=== PATIENT | female | born 1985 | race Caucasian/White ===

== ENCOUNTER → 2023-04-14 15:58 | Outpatient (REF) | payer BC, SELFPAY | LOC: PNTC 15:58 | PROVIDERS: ATTENDING PHYSICIAN Obstetrics & Gynecology | DX: O24.419 Gestational diabetes mellitus in pregnancy, unspecified control (principal) | CPT/HCPCS: 76815 ==

== ENCOUNTER → 2023-04-16 15:27 | Outpatient (REF) | payer BC, SELFPAY ==
--- NOTE | 2023-04-16 15:51 | PN.DE ---
Diabetes Education
- -
Met with Tasneem today for insulin instructions. Her fasting glucose levels have been 92-103 mg/dl, and 88-141mg/dl 2 hrs after meals. Pt has been recommended to start Insulin NPH 6 units in am and @ HS per her Perinatologist Dr. Ramirez. Discussed
action of long acting insulins as well as symptoms and treatment of hypoglycemia. She is aware to inject insulin in outer thigh, rotating sites and aware to store insulin pens that are not in use in the refrigerator. Instructions with good return
demonstration using the insulin pen were noted. Discussed importance of checking fasting blood sugar to know the effect of the basal insulin on her blood sugars overnight. She has been consistent with monitoring 2 hrs after each meal. Stressed the
importance of ongoing monitoring fasting/before breakfast and 2 hrs after each meal to know the effect of food on her blood sugars.
Pt verbalized understanding.
== END ==
LOC: DES 15:27
PROVIDERS: ATTENDING PHYSICIAN Otolaryngology
DX: O24.419 Gestational diabetes mellitus in pregnancy, unspecified control (principal)
CPT/HCPCS: 99078

== ENCOUNTER → 2023-05-14 16:41 | Outpatient (REF) | payer BC, SELFPAY | LOC: PNTC 16:41 | PROVIDERS: ATTENDING PHYSICIAN Obstetrics & Gynecology | DX: O44.42 Low lying placenta NOS or without hemorrhage, second trimester (principal); O24.424 Gestational diabetes mellitus in childbirth, insulin controlled | CPT/HCPCS: 76816; 76817 ==

== ENCOUNTER → 2023-05-20 06:27 | Outpatient (REF) | payer BC, SELFPAY ==
[2023-05-20 07:24] LABS: ALT (SGPT) 14 U/L (0-35); AST (SGOT) 23 U/L (14-36); Albumin 3.3 g/dl (3.5-5.0); Alkaline Phosphatase 87 U/L (38-126); Blood Urea Nitrogen 7 mg/dl (7-17); Calcium 8.4 mg/dl (8.4-10.2); Carbon Dioxide 20 mmol/L (22-30); Chloride 109 mmol/L (98-107); Glucose 87 mg/dl (70-99); Potassium 3.5 mmol/L (3.5-5.1); Sodium 134 mmol/L (135-145); Total Bilirubin 0.3 mg/dl (0.2-1.3); Total Protein 6.1 g/dl (6.3-8.2); eGFR > 60.00
== END ==
LOC: REG 06:27
PROVIDERS: ATTENDING PHYSICIAN Obstetrics & Gynecology; FAMILY PHYSICIAN Family Medicine
DX: Z34.90 Encounter for supervision of normal pregnancy, unspecified, unspecified trimester (principal)
CPT/HCPCS: 36415; 80053

== ENCOUNTER → 2023-06-11 07:44 | Outpatient (REF) | payer BC, SELFPAY | LOC: PNTC 07:44 | PROVIDERS: ATTENDING PHYSICIAN Obstetrics & Gynecology | DX: O24.419 Gestational diabetes mellitus in pregnancy, unspecified control (principal) | CPT/HCPCS: 76816 ==

== ENCOUNTER → 2023-06-29 15:20 | Outpatient (REF) | payer BC, SELFPAY | LOC: PNTC 15:20 | PROVIDERS: ATTENDING PHYSICIAN Obstetrics & Gynecology | DX: O24.419 Gestational diabetes mellitus in pregnancy, unspecified control (principal); O98.519 Other viral diseases complicating pregnancy, unspecified trimester; U07.1 COVID-19 | CPT/HCPCS: 59025; 76815 ==

== ENCOUNTER → 2023-07-06 16:16 | Outpatient (REF) | payer BC, SELFPAY | LOC: PNTC 16:16 | PROVIDERS: ATTENDING PHYSICIAN Obstetrics & Gynecology | DX: O24.419 Gestational diabetes mellitus in pregnancy, unspecified control (principal); O98.519 Other viral diseases complicating pregnancy, unspecified trimester | CPT/HCPCS: 59025; 76815 ==

== ENCOUNTER → 2023-07-13 15:21 | Outpatient (REF) | payer BC, SELFPAY | LOC: PNTC 15:21 | PROVIDERS: ATTENDING PHYSICIAN Obstetrics & Gynecology | DX: O24.419 Gestational diabetes mellitus in pregnancy, unspecified control (principal) | CPT/HCPCS: 59025; 76816 ==

== ENCOUNTER → 2023-07-20 14:43 | Outpatient (REF) | payer BC, SELFPAY | LOC: PNTC 14:43 | PROVIDERS: ATTENDING PHYSICIAN Obstetrics & Gynecology | DX: O24.414 Gestational diabetes mellitus in pregnancy, insulin controlled (principal); O09.529 Supervision of elderly multigravida, unspecified trimester | CPT/HCPCS: 76815 ==

== ENCOUNTER → 2023-07-27 13:51 | Outpatient (REF) | payer BC, SELFPAY | LOC: PNTC 13:51 | PROVIDERS: ATTENDING PHYSICIAN Obstetrics & Gynecology | DX: O24.419 Gestational diabetes mellitus in pregnancy, unspecified control (principal); O09.529 Supervision of elderly multigravida, unspecified trimester; O99.210 Obesity complicating pregnancy, unspecified trimester | CPT/HCPCS: 59025; 76815 ==

== ENCOUNTER 2023-07-28 15:49 | Observation (INO) | payer BC, SELFPAY ==
[2023-07-28 15:56] VITALS: BP 131/82; BMI 37.3
== END 2023-07-28 18:25 | disposition home or self-care (01) ==
LOC: LDRP 15:49
PROVIDERS: ADMITTING PHYSICIAN Obstetrics & Gynecology
DX: O36.8130 Decreased fetal movements, third trimester, not applicable or unspecified (principal); Z3A.36 36 weeks gestation of pregnancy; O24.414 Gestational diabetes mellitus in pregnancy, insulin controlled; O99.213 Obesity complicating pregnancy, third trimester; O09.523 Supervision of elderly multigravida, third trimester; O76 Abnormality in fetal heart rate and rhythm complicating labor and delivery
CPT/HCPCS: 76818; G0378

== ENCOUNTER → 2023-08-03 15:46 | Outpatient (REF) | payer BC, SELFPAY | LOC: PNTC 15:46 | PROVIDERS: ATTENDING PHYSICIAN Obstetrics & Gynecology | DX: O24.419 Gestational diabetes mellitus in pregnancy, unspecified control (principal); O99.210 Obesity complicating pregnancy, unspecified trimester; O09.529 Supervision of elderly multigravida, unspecified trimester | CPT/HCPCS: 59025; 76815 ==

== ENCOUNTER 2023-08-06 17:10 | Inpatient (IN) | payer BC, SELFPAY ==
[2023-08-06 17:22] VITALS: BP 110/72; BMI 37.7
[2023-08-06 17:43] LABS: % Basophils 0.2 % (0-2); % Eosinophils 0.4 % (0-6); % Lymphocytes 27.5 % (20.5-51.1); % Neutrophils 64.9 % (42.2-75.2); Absolute Immature Granulocytes 0.1 10^3/uL (0-0.05); Absolute Lymphocytes 2.7 10^3/uL (1.2-3.4); Absolute Monocytes 0.6 10^3/uL (0.1-0.6); Absolute Neutrophils 6.3 10^3/uL (1.4-6.5); Hematocrit 34.1 % (37.0-47.0); Hemoglobin 12.2 g/dL (12.0-16.0); Mean Corp Hgb Conc. 35.8 g/dL (33.0-37.0); Mean Corpuscular Hgb 30.1 pg (27.0-31.0); Mean Corpuscular Volume 84.2 fL (81.0-99.0); Mean Platelet Volume 10.9 fL (7.4-10.4); Nucleated Red Blood Cells % 0 %; Platelet Count 160 10^3/uL (130-400); Red Blood Cell Count 4.05 10^6/uL (4.20-5.40); Red Cell Dist. Width 14.4 % (11.5-14.5); White Blood Cell Count 9.8 10^3/uL (4.8-10.8)
[2023-08-06 17:44] LABS: Urine Albumin Negative (Neg - Trace); Urine Bilirubin Negative (Negative); Urine Character Clear (Clear); Urine Color Yellow; Urine Glucose Negative (Negative); Urine Ketone Negative (Negative); Urine Leukocyte 1+ (Negative); Urine Nitrite Negative (Negative); Urine Occult Blood Trace (Negative); Urine Urobilinogen Negative (Neg - 1+)
[2023-08-06 17:54] LABS: Urine Squamous Cell >30 /LPF (Few)
[2023-08-06 17:57] LABS: ALT (SGPT) 13 U/L (0-35); AST (SGOT) 25 U/L (14-36); Albumin 3.5 g/dl (3.5-5.0); Alkaline Phosphatase 174 U/L (38-126); Blood Urea Nitrogen 9 mg/dl (7-17); Calcium 9.3 mg/dl (8.4-10.2); Carbon Dioxide 19 mmol/L (22-30); Chloride 108 mmol/L (98-107); Estimated Creatinine Clearance > 125 ml/min; Glucose 85 mg/dl (70-99); Sodium 133 mmol/L (135-145); Total Bilirubin 0.3 mg/dl (0.2-1.3); Total Protein 6.3 g/dl (6.3-8.2); Uric Acid 3.2 mg/dl (2.5-6.2); Urine Bacteria Few (Negative); eGFR > 60.00
[2023-08-06 17:59] LABS: Protein/creatinine Ratio 0.2; Urine Protein 20 mg/dl
[2023-08-06] MEDS: LR 1000 IV ×2 (19:46→21:37)
[2023-08-06 20:08] LABS: Glucose - Point of Care 110 mg/dl (70-99)
[2023-08-06] MEDS: NOVOLOG MIX 70/30 FLEXPEN 6 UNITS SC (20:12)
[2023-08-06] MEDS: PITOCIN 30 UNITS/NSS 500 ML IV (20:43)
[2023-08-07 00:58] LABS: Glucose - Point of Care 94 mg/dl (70-99)
[2023-08-07] MEDS: FENTANYL/BUPIVACAINE 100 EPIDURAL (01:11)
[2023-08-07] MEDS: SUBLIMAZE 100 MCG EPIDURAL (01:11)
[2023-08-07] MEDS: TUMS EX (EXTRA STRENGTH) CHEWABLE 1 TABLET PO (01:40)
[2023-08-07 04:03] LABS: Glucose - Point of Care 95 mg/dl (70-99)
[2023-08-07 05:57] LABS: Glucose - Point of Care 93 mg/dl (70-99)
[2023-08-07] MEDS: PRENATAL PLUS 1 TABLET PO (08:56)
[2023-08-07] MEDS: MOTRIN 600 MG PO ×3 (08:56→21:34)
[2023-08-07] MEDS: TYLENOL 650 MG PO ×2 (13:47→19:41)
[2023-08-08] MEDS: MOTRIN 600 MG PO ×4 (03:36→22:20)
[2023-08-08 03:39] LABS: Hematocrit 28.3 % (37.0-47.0); Hemoglobin 9.9 g/dL (12.0-16.0)
[2023-08-08] MEDS: PRENATAL PLUS 1 TABLET PO (08:17)
[2023-08-08] MEDS: FEOSOL 325 MG PO ×2 (08:17→19:40)
[2023-08-08] MEDS: SENOKOT-S 1 TABLET PO (10:27)
[2023-08-08] MEDS: TYLENOL 650 MG PO (19:45)
[2023-08-09] MEDS: MOTRIN 600 MG PO (04:50)
[2023-08-09] MEDS: FEOSOL 325 MG PO (07:46)
[2023-08-09] MEDS: PRENATAL PLUS 1 TABLET PO (07:46)
[2023-08-09] MEDS: SENOKOT-S 1 TABLET PO (07:50)
[2023-08-09] MEDS: TYLENOL 650 MG PO (07:50)
[2023-08-11 15:43] LABS: Syphilis/T. pallidum Ab Reflex Negative (Negative)
== END 2023-08-09 11:31 | disposition home or self-care (01) | DRG 807 ==
LOC: LDRP 17:10
PROVIDERS: Obstetrics & Gynecology; ADMITTING PHYSICIAN Obstetrics & Gynecology; FAMILY PHYSICIAN Family Medicine
PROC: 3E033VJ Introduction of Other Hormone into Peripheral Vein, Percutaneous Approach (ICD-10-PCS; 2023-08-07)
PROC: 0KQM0ZZ Repair Perineum Muscle, Open Approach (ICD-10-PCS; 2023-08-07)
PROC: 10907ZC Drainage of Amniotic Fluid, Therapeutic from Products of Conception, Via Natural or Artificial Opening (ICD-10-PCS; 2023-08-07)
PROC: 10E0XZZ Delivery of Products of Conception, External Approach (ICD-10-PCS; 2023-08-07)
DX: O36.8130 Decreased fetal movements, third trimester, not applicable or unspecified (principal); Z37.0 Single live birth; O13.4 Gestational [pregnancy-induced] hypertension without significant proteinuria, complicating childbirth; O99.214 Obesity complicating childbirth; O70.1 Second degree perineal laceration during delivery; O69.81X0 Labor and delivery complicated by cord around neck, without compression, not applicable or unspecified; O32.6XX0 Maternal care for compound presentation, not applicable or unspecified; O24.424 Gestational diabetes mellitus in childbirth, insulin controlled; Z3A.36 36 weeks gestation of pregnancy
CPT/HCPCS: 88307; 36415; 80053; 81003; 81015; 82570; 82962; 84156; 84550; 85014; 85018; 85025; 86780; 86850; 86900; 86901

== ENCOUNTER → 2024-05-26 16:51 | Outpatient (REF) | payer BC, SELFPAY | LOC: RAD 16:51 | PROVIDERS: ATTENDING PHYSICIAN Obstetrics & Gynecology; FAMILY PHYSICIAN Family Medicine | DX: N92.6 Irregular menstruation, unspecified (principal) | CPT/HCPCS: 76830; 76856 ==